=== PATIENT | female | born 1995 | race Caucasian/White ===

== ENCOUNTER 2024-05-15 10:19 | Outpatient (RCR) | payer OTHER, SELFPAY | END 2024-05-15 23:59 | disposition home or self-care (01) | LOC: ROT 10:19 | PROVIDERS: ATTENDING PHYSICIAN Psychiatry & Neurology Neurology; FAMILY PHYSICIAN Family Medicine | DX: F07.81 Postconcussional syndrome (principal); Z73.6 Limitation of activities due to disability | CPT/HCPCS: 97167; 97535 ==

== ENCOUNTER 2024-07-01 16:46 | Outpatient (RCR) | payer OTHER, SELFPAY | END 2024-07-01 23:59 | disposition home or self-care (01) | LOC: ROT 16:46 | PROVIDERS: Psychiatry & Neurology Neurology; ATTENDING PHYSICIAN Nurse Practitioner Adult Health; FAMILY PHYSICIAN Family Medicine | DX: F07.81 Postconcussional syndrome (principal); Z73.6 Limitation of activities due to disability | CPT/HCPCS: 97530; 97535 ==

== ENCOUNTER 2024-08-01 17:01 | Outpatient (RCR) | payer OTHER, SELFPAY | END 2024-08-01 23:59 | disposition home or self-care (01) | LOC: ROT 17:01 | PROVIDERS: ATTENDING PHYSICIAN Nurse Practitioner Adult Health; FAMILY PHYSICIAN Family Medicine | DX: R41.840 Attention and concentration deficit (principal); Z73.6 Limitation of activities due to disability; R41.89 Other symptoms and signs involving cognitive functions and awareness; F07.81 Postconcussional syndrome | CPT/HCPCS: 97530; 97535 ==

== ENCOUNTER 2024-08-29 16:51 | Outpatient (RCR) | payer OTHER, SELFPAY | END 2024-08-29 23:59 | disposition home or self-care (01) | LOC: ROT 16:51 | PROVIDERS: ATTENDING PHYSICIAN Nurse Practitioner Adult Health; FAMILY PHYSICIAN Family Medicine | DX: R41.840 Attention and concentration deficit (principal); R41.89 Other symptoms and signs involving cognitive functions and awareness; F07.81 Postconcussional syndrome; Z73.6 Limitation of activities due to disability | CPT/HCPCS: 97110; 97530; 97535 ==

== ENCOUNTER 2024-09-10 08:18 | Emergency (ER) | payer OTHER, SELFPAY ==
[2024-09-10 08:25] VITALS: BP 136/83
--- NOTE | 2024-09-10 08:57 | ED.GENMED ---
History of Present Illness
<Ayde North MD, Resident - Last Filed: 09/10/24 10:31>
General
Chief Complaint: Cold/Flu/URI Symptoms
Time Seen by Provider: 09/10/24 08:57
History of Present Illness
History of Present Illness:
This is a 29-year-old female who presents to the ED complaining of URI symptoms. Patient reports cough, sore throat, nasal congestion and headache started this morning. She reports cough is nonproductive. She has had no fevers, no chills.
Currently, her 11-year-old son is sick with the same symptoms. She denies chest pain, shortness of breath.
Past History
<Ayde North MD, Resident - Last Filed: 09/10/24 10:31>
Past History
ED Past Medical History: None
ED Past Surgical History: None
Patient has exhibited threatening behavior?: No
Social History
Tobacco: Non-smoker
Drug: None
Living: with family
Employment: Employed ([employer])
Review of Systems
<Ayde North MD, Resident - Last Filed: 09/10/24 10:31>
Review of Systems
All Other Systems: ROS reviewed and negative except as documented in HPI and ROS
Phy Exam
<Ayde North MD, Resident - Last Filed: 09/10/24 10:31>
General Physical Exam
General Presentation: well appearing and no apparent distress
ENT Exam
ENT Exam: EOMI and neck supple
Cardiovascular Exam
Cardiovascular Exam: regular rate/rhythm
Pulmonary Exam
Pulmonary Exam: lungs clear, no respiratory distress, no rales, no crackles and no rhonchi
Gastrointestinal Exam
Gastrointestinal Exam: normal bowel sounds, non tender, soft and non distended
Course
<Ayde North MD, Resident - Last Filed: 09/10/24 10:31>
Orders/Labs/Results
Orders:
Orders
09/10/24 08:41
COVID-19 Antigen Urgent
Source: Nasal Swab
Influenza A+B Rapid Molecular Urgent
ANTHONY Source: Nasal Swab
Specimen Description:
Vital Signs
Initial and Last Documented VS:
Initial Vital Signs
Temp Pulse Resp BP Pulse Ox
98.6 F 74 16 136/83 99
09/10/24 08:25 09/10/24 08:25 09/10/24 08:25 09/10/24 08:25 09/10/24 08:25
Last Documented Vital Signs
Temp Pulse Resp BP Pulse Ox
98.6 F 74 16 136/83 99
09/10/24 08:25 09/10/24 08:25 09/10/24 08:25 09/10/24 08:25 09/10/24 08:25
<Konrad Francisco, DO - Last Filed: 09/10/24 09:49>
Orders/Labs/Results
Orders:
Orders
09/10/24 08:41
COVID-19 Antigen Urgent
Source: Nasal Swab
Influenza A+B Rapid Molecular Urgent
ANTHONY Source: Nasal Swab
Specimen Description:
Vital Signs
Initial and Last Documented VS:
Initial Vital Signs
Temp Pulse Resp BP Pulse Ox
98.6 F 74 16 136/83 99
09/10/24 08:25 09/10/24 08:25 09/10/24 08:25 09/10/24 08:25 09/10/24 08:25
Last Documented Vital Signs
Temp Pulse Resp BP Pulse Ox
98.6 F 74 16 136/83 99
09/10/24 08:25 09/10/24 08:25 09/10/24 08:25 09/10/24 08:25 09/10/24 08:25
<Ayde North MD, Resident - Last Filed: 09/10/24 10:31>
MDM/Problems Addressed
MDM/Problems Addressed:
29-year-old female presents with upper respiratory symptoms including congestion, sore throat and non productive cough. Afebrile on presentation, no signs of bacterial infection or complications. COVID-negative, flu negative. Patient advised on
supportive care with fluids, rest and OTC medications such as acetaminophen, decongestants and throat lozenges. Return precautions were discussed, patient agrees with plan.
<Ayde North MD, Resident - Last Filed: 09/10/24 10:31>
*Critical Care Note
Total Time (30-74mins, 75-104mins- exclusive of procedures): Not Applicable
ED Attending Note
<Ayde North MD, Resident - Last Filed: 09/10/24 10:31>
-
Portions of this chart may have been created with voice recognition software.� Occasional wrong word or��sound alike� substitutions may have occurred due to the inherent limitations of voice recognition software.
<Konrad Francisco, DO - Last Filed: 09/10/24 09:49>
ED Attending Note
Patient seen and examined by attending physician: Yes
I performed a history and physical exam of patient and discussed management with resident, I reviewed resident's note and agree with documented findings and plan of care.: Yes
ED Attending Note:
Seen with resident examined independently nontoxic 29-year-old female seen here with her son who is similar but more prolonged symptoms there so of cough URI sore throat here she looks well nontoxic not wheezing
Discharge Plan
Departure
Patient Disposition: Home (Routine Discharge)
Date of Disposition: 09/10/24
Time of Disposition: 10:29
Patient with high blood pressure during this ER visit?: No
Discharge Problem:
Acute sinusitis
Instructions: Viral Syndrome (DC)
Prescriptions:
No Action
benzonatate 100 MG capsule
100 mg PO TIDPRN PRN (Reason: cough) Qty: 15 0RF
albuterol sulfate [ProAir HFA] 90 mcg/actuation HFA aerosol inhaler
1 puff inhalation Q4HPRN PRN (Reason: shortness of breath) Qty: 6.7 0RF
prednisone 20 mg tablet
40 mg PO DAILY 5 Days Qty: 10 0RF
Referrals:
Edd Leo DO [Family Provider] -
Stand Alone Forms: Return to Work
Interventions
Interventions:
*Risk Screen - Suicide Last Done: 09/10/24 08:25
*General Assessment Last Done: 09/10/24 08:25
*ED COVID-19 Vaccine History Last Done: 09/10/24 08:25
ED- Pulmonary Assessment Last Done: 09/10/24 10:22
Discharge Date and Time
Print Language: MALTESE
[2024-09-10 09:14] LABS: COVID-19 Antigen Negative (Negative)
== END 2024-09-10 10:36 | disposition home or self-care (01) ==
LOC: EMR 08:18
PROVIDERS: EMERGENCY PHYSICIAN Emergency Medicine; FAMILY PHYSICIAN Family Medicine
DX: J01.90 Acute sinusitis, unspecified (principal); Z11.52 Encounter for screening for COVID-19
CPT/HCPCS: 99283; 87502; 87811